=== PATIENT | female | born 1980 | race Two or more races ===

== ENCOUNTER → 2017-06-12 | Outpatient (CLI) | payer OTHER ==
--- NOTE | 2017-06-12 13:04 | RAD ---
Two-view right wrist History: 3 days of pain after fall AP and lateral views right wrist limited 2 view The visualized osseous structures appear normal. Impression: Negative examination.
== END | disposition home or self-care (01) ==
LOC: RAD 12:12
PROVIDERS: ATTEND Family Medicine
DX: M79.601 Pain in right arm (principal)
CPT/HCPCS: 73100

== ENCOUNTER → 2017-07-02 | Outpatient (CLI) | payer OTHER | END | disposition home or self-care (01) | LOC: KCIC MRI 13:37 | DX: M25.531 Pain in right wrist (principal); M25.431 Effusion, right wrist; R60.0 Localized edema; Z91.81 History of falling | CPT/HCPCS: 73221 ==

== ENCOUNTER 2017-07-09 23:41 | Emergency (ER) | payer OTHER ==
[2017-07-10] MEDS: DEXAMETHASONE SOD PHOS 20 MG/5 ML VIAL. IM (00:53)
[2017-07-10] MEDS: KETOROLAC 60 MG/2 ML INJ. IM (00:53)
[2017-07-10] MEDS: HYDROcodone/APAP 5/325MG 1 TAB TABLET PO (00:53)
== END 2017-07-10 01:10 | disposition home or self-care (01) ==
LOC: ER 07-10 01:10
DX: E34.51 Complete androgen insensitivity syndrome (principal); W18.39XA Other fall on same level, initial encounter; Y93.89 Activity, other specified; Y99.8 Other external cause status; Y92.89 Other specified places as the place of occurrence of the external cause
CPT/HCPCS: 29125; 96372; 99284-25; J1100; J1885

== ENCOUNTER → 2017-11-29 | Outpatient (CLI) | payer OTHER | END | disposition home or self-care (01) | LOC: KCIC MRI 14:45 | DX: M65.831 Other synovitis and tenosynovitis, right forearm (principal); R60.0 Localized edema | CPT/HCPCS: 73221 ==

== ENCOUNTER → 2018-08-12 | Outpatient (CLI) | payer OTHER ==
[2017-07-10 00:03] VITALS: BP 140/79
[~2018-08-12] MED LIST: CYCL10TA2 PO; DICL50TA2 PO; METH4TAB2 PO
--- NOTE | 2018-08-12 15:49 | KCIC ---
Complete abdomen ultrasound study Clinical indications: Elevated liver function tests. Abdominal pain. FINDINGS: No focal enlargement of the pancreas is seen. No focal aneurysmal dilatation of the abdominal aorta is seen. The intrahepatic portion of the IVC is unremarkable. There is attenuation of sound throughout the liver which may be seen with fatty infiltration of the liver. This decreases the sensitivity of sonography to detect focal hepatic lesions. No focal hepatic mass is seen otherwise. The liver measures 18.8 cm in length which is mildly enlarged. The extra hepatic bile duct measures 5.1 mm in caliber which is normal. The gallbladder surgically absent. The length of the right kidney is 11.7 cm and the length of the left kidney is 11.6 cm. No hydronephrosis or renal mass or perinephric fluid collection is seen on either side. The spleen measures 10.6 cm in length which is normal. No ascites is seen. IMPRESSION: Hepatomegaly. Fatty infiltration of the liver. Electronically signed by: Vasile Blank MD (08/12/2018 3:46 PM) [id number]
== END | disposition home or self-care (01) ==
LOC: KCIC US 07:55
PROVIDERS: ATTEND Family Medicine
DX: K76.0 Fatty (change of) liver, not elsewhere classified (principal); R16.0 Hepatomegaly, not elsewhere classified
CPT/HCPCS: 76700

== ENCOUNTER → 2020-02-02 | Outpatient (CLI) | payer OTHER ==
[2017-07-10 00:03] VITALS: BP 140/79
--- NOTE | 2020-02-02 08:53 | RAD ---
Complete abdominal ultrasound 02/02/2020 INDICATION: Elevated LFTs. COMPARISON STUDY: Abdominal ultrasound August 12, 2017 Discussion: Ultrasound. Static images are submitted to PACS. The pancreas is partially visualized. Visualized portions of the pancreas are unremarkable. Visualized portions of the aorta and IVC are unremarkable. The liver is poorly visualized. Liver is 17 cm in longitudinal diameter. The liver appears to be diffusely increased in echogenicity suggesting hepatic steatosis. The right kidney is unremarkable in appearance measuring 12.6 cm in length. The common bile duct is visualized and normal in diameter between 3 and 4 mm. The gallbladder is surgically absent. Left kidney is unremarkable in appearance measuring 12 cm in length. There is borderline splenomegaly with spleen measuring 12 cm longitudinally on today's study. IMPRESSION: 1. Hepatic steatosis, similar to comparison study. Liver measures top normal on today's exam. 2. Borderline splenomegaly Electronically signed by: Edy Sanford MD (02/02/2020 8:51 AM) [id number]
== END | disposition home or self-care (01) ==
LOC: US 08:11
PROVIDERS: ATTEND Family Medicine
DX: K76.0 Fatty (change of) liver, not elsewhere classified (principal); R79.89 Other specified abnormal findings of blood chemistry; Z90.49 Acquired absence of other specified parts of digestive tract
CPT/HCPCS: 76700